=== PATIENT | male | born 1965 | race African-American/Black ===

== ENCOUNTER 2016-09-04 06:29 | Emergency (ER) | payer MEDICAID ==
[~2016-09-04] VITALS: Ht 172.7 cm; Wt 105.0 kg
[~2016-09-04 06:29] MED LIST: METFORMIN
[2016-09-04] MEDS ORDERED: LIDOCAINE HCL 1% 20ML VIAL (Pyxis) INJ MC ONE (08:00)
[2016-09-04] MEDS ORDERED: OXYCODONE HCL/ACETAMINOPHEN 5/325MG TABLET PO ONE (08:00)
[2016-09-04 08:28] VITALS: BP 136/60
== END 2016-09-04 09:22 | disposition home or self-care (01) ==
LOC: ER 07:39
DX: L02.31 Cutaneous abscess of buttock (principal)
CPT/HCPCS: 10060; 99283; J3490

== ENCOUNTER 2017-03-06 04:01 | Observation (INO) | payer MEDICAID ==
[~2017-03-06] VITALS: Ht 167.6 cm; Wt 99.8 kg
[2017-03-06] MEDS ORDERED: SODIUM CHLORIDE 0.9% 1,000 ML IV ONE (06:25)
[2017-03-06] MEDS ORDERED: KETOROLAC 30MG/ML VIAL IV STA (06:25)
[2017-03-06] MEDS ORDERED: ONDANSETRON HCL 4MG/2ML VIAL IV STA (06:25)
[2017-03-06] MEDS ORDERED: LEVOFLOXACIN 750MG PREMIX 150 ML IV ONE (06:30)
[2017-03-06] MEDS ORDERED: VANCOMYCIN 1 G PREMIX 200 ML IV ONE (06:30)
[2017-03-06 07:11] LABS: BASOPHILS % 0.5 % (0.0-2.0); EOSINOPHILS % 1.4 % (0.0-5.0); HEMATOCRIT. 38.3 % (42.0-52.0); HEMOGLOBIN. 12.7 g/dL (14.0-18.0); LYMPHOCYTES % 24.2 % (20.0-50.0); MEAN CORPUSCULAR HEMOGLOBIN 27.5 pg (28.0-32.0); MEAN CORPUSCULAR VOLUME 82.8 fL (80.0-94.0); MEAN PLATELET VOLUME 9.9 fl (7.4-10.4); MONOCYTES % 4.6 % (2.0-8.0); NEUTROPHILS % 69.3 % (40.0-76.0); PLATELET 212 x1000/uL (130-400); RED BLOOD CELL COUNT 4.63 mill/uL (4.7-6.1); RED CELL DISTRIBUTION WIDTH 14.1 % (11.6-14.6)
[2017-03-06 07:16] LABS: PROTHROMBIN TIME 10.4 sec (9.4-11.6)
[2017-03-06 07:24] LABS: CARBON DIOXIDE 26 mEq/L (21-32); CHLORIDE 105 mEq/L (98-107)
[2017-03-06] MEDS ORDERED: DEXT 5%/0.45% NACL KCL 20MEQ/L 1,000 ML IV SCH (09:12)
[2017-03-06] MEDS ORDERED: ONDANSETRON HCL 4MG/2ML VIAL IV PRN ×2 (09:15→09:30)
[2017-03-06] MEDS ORDERED: MORPHINE SULFATE 2 MG/ML CPJ (NOT FOR IM USE) IV PRN ×3 (09:15→15:00)
[2017-03-06] MEDS ORDERED: HYDROCODONE/ACETAMINOPHEN 5/325MG TABLET PO PRN ×4 (09:15→09:30)
[2017-03-06] MEDS ORDERED: MORPHINE SULFATE 4 MG/ML CPJ (NOT FOR IM USE) IV PRN ×2 (09:15→09:30)
[2017-03-06] MEDS ORDERED: SUCCINYLCHOLINE CHLORIDE 200MG/10ML VIAL IV ONE (09:43)
[2017-03-06] MEDS ORDERED: LIDOCAINE HCL 1% 20ML VIAL (Pyxis) INJ ONE (09:43)
[2017-03-06] MEDS ORDERED: PHENYLEPHRINE HCL 10 MG/ML 1ML (IV VIAL) IV ONE (09:43)
[2017-03-06] MEDS ORDERED: PROPOFOL 200MG/20ML VIAL IV ONE ×2 (09:43→09:59)
[2017-03-06] MEDS ORDERED: HYDRALAZINE 20MG/ML VIAL ONE (10:03)
[2017-03-06] MEDS ORDERED: FENTANYL CITRATE/PF 50MCG/ML 2ML VIAL ONE (10:05)
[2017-03-06] MEDS ORDERED: IPRATROPIUM/ALBUTEROL 0.5-3(2.5)MG/3ML NEB ONE (10:35)
[2017-03-06] MEDS ORDERED: IPRATROPIUM/ALBUTEROL 0.5-3(2.5)MG/3ML NEB HHN ONE (10:45)
[2017-03-06] MEDS ORDERED: ALBUTEROL (0.083%) 2.5MG/3ML NEB HHN ONE (10:45)
[2017-03-06] MEDS ORDERED: HYDROMORPHONE HCL/PF 2MG/ML CPJ IV PRN (10:45)
[2017-03-06 12:45] VITALS: BP 142/75
[2017-03-06 13:10] VITALS: BP 142/75
[2017-03-06 16:00] VITALS: BP 146/79
[2017-03-06] MEDS ORDERED: DEXTROSE 50% WATER 50ML SYRINGE IV PRN (16:15)
[2017-03-06] MEDS: DEXT 5%/0.45% NACL KCL 20MEQ/L 1,000 ML IV SCH (16:44)
[2017-03-06] MEDS: BLOOD SUGAR DIAGNOSTIC STRIP TEST SCH ×2 (17:45→20:15)
[2017-03-06] MEDS: INSULIN LISPRO 100 UNITS/ML SUBCUT SCH ×2 (17:50→21:02)
[2017-03-06 20:00] VITALS: BP 145/87
[2017-03-07] VITALS: BP 167/90
[2017-03-07] MEDS: DEXT 5%/0.45% NACL KCL 20MEQ/L 1,000 ML IV SCH (01:06)
[2017-03-07 04:00] VITALS: BP 154/81
[2017-03-07] MEDS: BLOOD SUGAR DIAGNOSTIC STRIP TEST SCH (06:36)
== END 2017-03-07 07:15 | disposition left against medical advice (07) ==
LOC: ER 04:01 → EDBEDREQ 08:32 → ER 09:15 → ENRESERV 10:44 → 6EST 12:21 → INTOOBSV 12:21
PROVIDERS: ADMIT Internal Medicine; ATTEND Internal Medicine
DX: L02.31 Cutaneous abscess of buttock (principal); E11.9 Type 2 diabetes mellitus without complications; F17.200 Nicotine dependence, unspecified, uncomplicated; I10 Essential (primary) hypertension; Z79.84 Long term (current) use of oral hypoglycemic drugs
CPT/HCPCS: 10061; 36415; 80053; 82962; 83605; 85025; 85610; 87040; 87070; 87075; 87205; 93005; 94640; 96361; 96365; 96366; 96368; 96372; 96375; 99285; G0378; J0330; J0360; J1815; J1885; J1956; J2270; J2370; J2405; J3010; J3370; J3490; J7030; J2704; J7620

== ENCOUNTER 2017-03-29 04:39 | Emergency (ER) | payer MEDICAID ==
[~2017-03-29] VITALS: Ht 167.6 cm; Wt 101.4 kg
[2017-03-29 07:15] VITALS: BP 154/105
[2017-03-29] MEDS ORDERED: ACETAMINOPHEN 325MG TABLET PO ONE (08:00)
[2017-03-29] MEDS ORDERED: LIDOCAINE HCL 1% 20ML VIAL (Pyxis) INJ MC ONE (08:00)
== END 2017-03-29 09:44 | disposition home or self-care (01) ==
LOC: ER 04:39
DX: K65.1 Peritoneal abscess (principal); E11.9 Type 2 diabetes mellitus without complications; E78.00 Pure hypercholesterolemia, unspecified; F17.210 Nicotine dependence, cigarettes, uncomplicated; F12.10 Cannabis abuse, uncomplicated
CPT/HCPCS: 10060; 99283; J3490; X7700; Z7610

== ENCOUNTER 2017-04-26 03:37 | Emergency (ER) | payer MEDICAID ==
[~2017-04-26] VITALS: Ht 167.6 cm; Wt 100.0 kg
[2017-04-26] MEDS ORDERED: POVIDONE-IODINE 10% TOPICAL SOLN 240ML TOP ONE (06:30)
[2017-04-26] MEDS ORDERED: LIDOCAINE HCL 1% 20ML VIAL (Pyxis) INJ INFIL ONE (06:30)
[2017-04-26] MEDS ORDERED: HYDROCODONE/ACETAMINOPHEN 5/325MG TABLET PO ONE (06:30)
[2017-04-26 07:25] LABS: BASOPHILS % 1.1 % (0.0-2.0); EOSINOPHILS % 1.6 % (0.0-5.0); HEMATOCRIT. 39.4 % (42.0-52.0); HEMOGLOBIN. 12.8 g/dL (14.0-18.0); LYMPHOCYTES % 28.9 % (20.0-50.0); MEAN CORPUSCULAR VOLUME 83.2 fL (80.0-94.0); MEAN PLATELET VOLUME 9.4 fl (7.4-10.4); MONOCYTES % 6.5 % (2.0-8.0); NEUTROPHILS % 61.9 % (40.0-76.0); PLATELET 264 x1000/uL (130-400); RED BLOOD CELL COUNT 4.73 mill/uL (4.7-6.1); RED CELL DISTRIBUTION WIDTH 14.8 % (11.6-14.6)
[2017-04-26 07:43] LABS: CARBON DIOXIDE 27 mEq/L (21-32); CHLORIDE 104 mEq/L (98-107)
[2017-04-26 08:50] VITALS: BP 164/84
== END 2017-04-26 09:07 | disposition home or self-care (01) ==
LOC: ER 03:37
DX: L02.412 Cutaneous abscess of left axilla (principal); E11.9 Type 2 diabetes mellitus without complications; Z79.84 Long term (current) use of oral hypoglycemic drugs
CPT/HCPCS: 10060; 36415; 76881; 80048; 85025; 87070; 87077; 87186; 87205; 99285; A4246; J3490; X7700; Z7610

== ENCOUNTER 2017-08-03 02:50 | Emergency (ER) | payer MEDICAID ==
[~2017-08-03] VITALS: Ht 175.3 cm; Wt 100.0 kg
[2017-08-03 03:11] VITALS: BP 150/102
[2017-08-03 05:46] LABS: CLARITY URINE CLEAR (CLEAR); COLOR URINE YELLOW (YELLOW); KETONES URINE TRACE (NEGATIVE); LEUKOCYTE ESTERASE URINE NEGATIVE (NEGATIVE); NITRITE URINE NEGATIVE (NEGATIVE); OCCULT BLOOD URINE TRACE (NEGATIVE); PH URINE 5.5 (4.5-8.0); PROTEIN URINE 1+ (NEGATIVE); SPECIFIC GRAVITY URINE 1.028 (1.005-1.030)
[2017-08-03 05:57] LABS: *AMPHETAMINES SCREEN URINE NEGATIVE (NEGATIVE); *BARBITURATES SCREEN URINE NEGATIVE (NEGATIVE); *BENZODIAZEPINES SCREEN URINE NEGATIVE (NEGATIVE)
[2017-08-03 05:58] LABS: *COCAINE SCREEN URINE NEGATIVE (NEGATIVE); CANNABINOID URINE SCREEN PRESUMTIVE POSITIVE (NEGATIVE); METHADONE URINE SCREEN NEGATIVE (NEGATIVE); OPIATES URINE SCREEN NEGATIVE (NEGATIVE); PHENCYCLIDINE URINE SCREEN NEGATIVE (NEGATIVE)
== END 2017-08-03 06:07 | disposition left against medical advice (07) ==
LOC: ER 02:50
DX: E11.65 Type 2 diabetes mellitus with hyperglycemia (principal); F17.200 Nicotine dependence, unspecified, uncomplicated; F12.10 Cannabis abuse, uncomplicated; Z79.84 Long term (current) use of oral hypoglycemic drugs
CPT/HCPCS: 80305; 81003; 82962; 99284

== ENCOUNTER 2017-10-01 09:08 | Emergency (ER) | payer MEDICAID ==
[~2017-10-01] VITALS: Ht 167.6 cm; Wt 100.0 kg
[2017-10-01] MEDS ORDERED: DOCUSATE SODIUM SUGAR FREE 100MG/10ML UDC PO ONE (09:30)
[2017-10-01 11:33] VITALS: BP 129/87
== END 2017-10-01 11:34 | disposition home or self-care (01) ==
LOC: ER 09:26
DX: H61.23 Impacted cerumen, bilateral (principal); E11.9 Type 2 diabetes mellitus without complications; F17.200 Nicotine dependence, unspecified, uncomplicated; F12.10 Cannabis abuse, uncomplicated; Z79.84 Long term (current) use of oral hypoglycemic drugs
CPT/HCPCS: 99283; Z7610

== ENCOUNTER 2018-01-12 04:50 | Emergency (ER) | payer MEDICAID ==
[~2018-01-12] VITALS: Ht 167.6 cm; Wt 100.1 kg
[2018-01-12] MEDS ORDERED: IBUPROFEN 600MG TABLET PO STA (06:40)
[2018-01-12] MEDS ORDERED: BACITRACIN ZINC OINT UDPKT TOP ONE (06:45)
[2018-01-12] MEDS ORDERED: LIDOCAINE HCL/PF 1% 10 MG/ML 5ML VIAL IJ ONE (06:45)
[2018-01-12] MEDS ORDERED: TETANUS, DIPHTHERIA, PERTUSSIS VAC/PF 0.5ML (>7YR OLD) IM ONE (06:45)
[2018-01-12 08:51] VITALS: BP 145/87
== END 2018-01-12 08:53 | disposition home or self-care (01) ==
LOC: ER 04:50
DX: L02.211 Cutaneous abscess of abdominal wall (principal); E11.9 Type 2 diabetes mellitus without complications; R03.0 Elevated blood-pressure reading, without diagnosis of hypertension; F17.210 Nicotine dependence, cigarettes, uncomplicated; F12.90 Cannabis use, unspecified, uncomplicated; Z79.84 Long term (current) use of oral hypoglycemic drugs; Z23 Encounter for immunization
CPT/HCPCS: 82962; 90471; 90715; 99283; J3490

== ENCOUNTER 2018-11-26 03:03 | Emergency (ER) | payer MEDICAID ==
[~2018-11-26] VITALS: Ht 167.6 cm; Wt 100.0 kg
[2018-11-26] MEDS ORDERED: LIDOCAINE HCL/PF 1% 10 MG/ML 5ML VIAL IJ ONE (04:30)
[2018-11-26 05:27] VITALS: BP 144/77
== END 2018-11-26 05:29 | disposition home or self-care (01) ==
LOC: ER 03:03
DX: L02.31 Cutaneous abscess of buttock (principal); F17.200 Nicotine dependence, unspecified, uncomplicated; E11.9 Type 2 diabetes mellitus without complications; Z96.649 Presence of unspecified artificial hip joint
CPT/HCPCS: 10060; 99283; J3490; Z7610

== ENCOUNTER 2019-04-29 01:56 | Emergency (ER) | payer MEDICAID ==
[~2019-04-29] VITALS: Ht 167.6 cm; Wt 100.0 kg
[2019-04-29 02:11] VITALS: BP 143/95
== END 2019-04-29 05:24 | disposition left against medical advice (07) ==
LOC: ER 01:56
DX: L02.31 Cutaneous abscess of buttock (principal); Z53.21 Procedure and treatment not carried out due to patient leaving prior to being seen by health care provider
CPT/HCPCS: 82962

== ENCOUNTER 2019-07-03 08:44 | Emergency (ER) | payer MEDICAID ==
[~2019-07-03] VITALS: Ht 167.6 cm; Wt 100.0 kg
[2019-07-03] MEDS ORDERED: ACETAMINOPHEN 325MG TABLET PO ONE (09:45)
[2019-07-03 10:47] VITALS: BP 147/100
== END 2019-07-03 10:50 | disposition home or self-care (01) ==
LOC: ER 08:44
DX: H66.91 Otitis media, unspecified, right ear (principal); E11.9 Type 2 diabetes mellitus without complications; F12.10 Cannabis abuse, uncomplicated
CPT/HCPCS: 99283

== ENCOUNTER 2019-08-09 04:45 | Emergency (ER) | payer MEDICAID ==
[~2019-08-09] VITALS: Ht 167.6 cm; Wt 105.0 kg
[2019-08-09 04:57] VITALS: BP 158/110
[2019-08-09] MEDS ORDERED: LIDOCAINE HCL/PF 1% 10 MG/ML 5ML VIAL IJ ONE (05:30)
[2019-08-09] MEDS ORDERED: BACITRACIN ZINC OINT UDPKT TOP ONE (05:30)
== END 2019-08-09 06:03 | disposition home or self-care (01) ==
LOC: ER 04:45
DX: L02.211 Cutaneous abscess of abdominal wall (principal); E11.9 Type 2 diabetes mellitus without complications; E78.00 Pure hypercholesterolemia, unspecified; I10 Essential (primary) hypertension; F12.10 Cannabis abuse, uncomplicated
CPT/HCPCS: 10060; 99282; J3490

== ENCOUNTER 2019-09-27 04:55 | Inpatient (IN) | payer MEDICAID ==
[~2019-09-27] VITALS: Ht 167.6 cm; Wt 99.8 kg
[2019-09-27] MEDS ORDERED: IBUPROFEN 400MG TABLET PO SCH (05:15)
[2019-09-27] MEDS ORDERED: SODIUM CHLORIDE 0.9% 1,000 ML IV ONE (06:16)
[2019-09-27] MEDS ORDERED: MORPHINE SULFATE 4 MG/ML CPJ (NOT FOR IM USE) IV ONE (06:30)
[2019-09-27] MEDS ORDERED: VANCOMYCIN 1 G PREMIX 200 ML IV ONE (06:30)
[2019-09-27] MEDS ORDERED: PIPERACILLIN/TAZ 3.375G PREMIX 50 ML IV ONE (06:30)
[2019-09-27] MEDS ORDERED: ONDANSETRON HCL 4MG/2ML INJ IV ONE (06:30)
[2019-09-27 07:15] LABS: BASOPHILS % 1.1 % (0.0-2.0); EOSINOPHILS % 0.5 % (0.0-5.0); HEMOGLOBIN. 13.6 g/dL (14.0-18.0); LYMPHOCYTES % 18.9 % (20.0-50.0); MEAN CORPUSCULAR HEMOGLOBIN 27.1 pg (28.0-32.0); MEAN CORPUSCULAR VOLUME 81.9 fL (80.0-94.0); MEAN PLATELET VOLUME 10.3 fl (7.4-10.4); MONOCYTES % 5.4 % (2.0-8.0); NEUTROPHILS % 74.1 % (40.0-76.0); PLATELET 282 x1000/uL (130-400); RED BLOOD CELL COUNT 5.01 mill/uL (4.7-6.1); RED CELL DISTRIBUTION WIDTH 14.2 % (11.6-14.6)
[2019-09-27 07:18] LABS: CLARITY URINE CLEAR (CLEAR); COLOR URINE YELLOW (YELLOW); KETONES URINE TRACE (NEGATIVE); LEUKOCYTE ESTERASE URINE NEGATIVE (NEGATIVE); NITRITE URINE NEGATIVE (NEGATIVE); OCCULT BLOOD URINE TRACE (NEGATIVE); PROTEIN URINE 2+ (NEGATIVE); SPECIFIC GRAVITY URINE 1.038 (1.005-1.030); UROBILINOGEN URINE 0.2 E.U./dL (0.2-1.0)
[2019-09-27 07:22] LABS: CHLORIDE 101 mEq/L (98-107); INR 0.9; PROTHROMBIN TIME 9.9 sec (9.6-11.0)
[2019-09-27 07:41] LABS: *AMPHETAMINES SCREEN URINE NEGATIVE (NEGATIVE); *BARBITURATES SCREEN URINE NEGATIVE (NEGATIVE); *BENZODIAZEPINES SCREEN URINE NEGATIVE (NEGATIVE); *COCAINE SCREEN URINE NEGATIVE (NEGATIVE)
[2019-09-27 07:42] LABS: CANNABINOID URINE SCREEN PRESUMTIVE POSITIVE (NEGATIVE); METHADONE URINE SCREEN NEGATIVE (NEGATIVE); OPIATES URINE SCREEN PRESUMTIVE POSITIVE (NEGATIVE); PHENCYCLIDINE URINE SCREEN NEGATIVE (NEGATIVE)
[2019-09-27] MEDS ORDERED: INSULIN REGULAR (HUMULIN R) 300UNITS/3ML IV ONE (07:45)
[2019-09-27] MEDS ORDERED: IOHEXOL-300 100 ML BOTTLE ONE (08:41)
[2019-09-27] MEDS ORDERED: ACETAMINOPHEN 325MG TABLET PO PRN (09:15)
[2019-09-27] MEDS ORDERED: CLONIDINE 0.1MG TABLET PO PRN (09:15)
[2019-09-27] MEDS ORDERED: DIPHENHYDRAMINE 50MG/ML VIAL IV PRN (09:15)
[2019-09-27] MEDS ORDERED: ONDANSETRON HCL 4MG/2ML INJ IV PRN (09:15)
[2019-09-27] MEDS ORDERED: IPRATROPIUM/ALBUTEROL 0.5-3(2.5)MG/3ML NEB HHN PRN (09:15)
[2019-09-27] MEDS ORDERED: PIPERACILLIN/TAZ 3.375G PREMIX 50 ML IV SCH (09:15)
[2019-09-27 09:51] LABS: PHOSPHORUS 3.4 mg/dL (2.5-4.9)
[2019-09-27 10:00] VITALS: BP 151/98
[2019-09-27] MEDS ORDERED: SODIUM CHLORIDE 0.9% 1,000 ML IV SCH (11:00)
[2019-09-27 12:00] VITALS: BP 157/97
[2019-09-27] MEDS ORDERED: VANCOMYCIN 1500MG in DEXTROSE 5% WATER 250ML IV SCH (12:00)
[2019-09-27] MEDS ORDERED: PIPERACILLIN/TAZOBACTAM 3.375 G in DEXT 5% WATER 100 ML IV SCH (12:00)
[2019-09-27] MEDS ORDERED: MORPHINE SULFATE 2 MG/ML CPJ (NOT FOR IM USE) IV PRN (14:00)
[2019-09-27 16:22] VITALS: BP 157/97
== END 2019-09-27 16:41 | disposition home or self-care (01) | DRG 383 ==
LOC: ER 05:28 → 6EST 08:26 → EDBEDREQ 08:35 → ENRESERV 08:47
PROVIDERS: ADMIT Internal Medicine; ATTEND Internal Medicine
DX: L03.317 Cellulitis of buttock (principal); E11.65 Type 2 diabetes mellitus with hyperglycemia; E78.00 Pure hypercholesterolemia, unspecified; F17.200 Nicotine dependence, unspecified, uncomplicated; I10 Essential (primary) hypertension; Z79.899 Other long term (current) drug therapy
CPT/HCPCS: 36415; 71045; 74177; 80053; 80305; 81003; 83605; 83735; 84100; 84145; 85025; 93005; 93970; 99285; J1815; J2270; J2405; J2543; J3370; J7030; J7060; Q9967

== ENCOUNTER 2019-09-28 10:52 | Emergency (ER) | payer MEDICAID ==
[~2019-09-28] VITALS: Ht 167.6 cm; Wt 100.0 kg
[2019-09-28 11:18] VITALS: BP 135/96
[2019-09-28] MEDS ORDERED: LIDOCAINE HCL/PF 1% 10 MG/ML 5ML VIAL IJ ONE (12:00)
[2019-09-28] MEDS ORDERED: TETANUS, DIPHTHERIA, PERTUSSIS VAC/PF 0.5ML (>7YR OLD) IM ONE (12:00)
[2019-09-28] MEDS ORDERED: IBUPROFEN 600MG TABLET PO ONE (12:00)
[2019-09-28] MEDS ORDERED: BACITRACIN ZINC OINT UDPKT TOP ONE (12:00)
== END 2019-09-28 13:18 | disposition left against medical advice (07) ==
LOC: ER 10:52
DX: L02.31 Cutaneous abscess of buttock (principal); E78.00 Pure hypercholesterolemia, unspecified; E11.9 Type 2 diabetes mellitus without complications; I10 Essential (primary) hypertension
CPT/HCPCS: 90471; 90715; 99283; J3490

== ENCOUNTER 2020-01-02 04:28 | Emergency (ER) | payer MEDICAID ==
[~2020-01-02] VITALS: Ht 167.6 cm; Wt 100.0 kg
[2020-01-02] MEDS ORDERED: MORPHINE SULFATE 4 MG/ML CPJ (NOT FOR IM USE) IV STA (05:00)
[2020-01-02] MEDS ORDERED: PIPERACILLIN/TAZ 3.375G PREMIX 50 ML IV ONE (05:00)
[2020-01-02] MEDS ORDERED: ONDANSETRON HCL 4MG/2ML INJ IV STA (05:00)
[2020-01-02] MEDS ORDERED: SODIUM CHLORIDE 0.9% 1,000 ML IV ONE (05:00)
[2020-01-02] MEDS ORDERED: VANCOMYCIN 1 G PREMIX 200 ML IV ONE (05:00)
[2020-01-02 05:47] LABS: BASOPHILS % 0.6 % (0.0-2.0); EOSINOPHILS % 0.9 % (0.0-5.0); HEMATOCRIT. 42.7 % (42.0-52.0); HEMOGLOBIN. 13.7 g/dL (14.0-18.0); MEAN CORPUSCULAR HEMOGLOBIN 26.8 pg (28.0-32.0); MEAN CORPUSCULAR VOLUME 83.4 fL (80.0-94.0); MEAN PLATELET VOLUME 10.2 fl (7.4-10.4); MONOCYTES % 4.8 % (2.0-8.0); NEUTROPHILS % 71.7 % (40.0-76.0); PLATELET 257 x1000/uL (130-400); RED BLOOD CELL COUNT 5.12 mill/uL (4.7-6.1); RED CELL DISTRIBUTION WIDTH 14.6 % (11.6-14.6)
[2020-01-02 05:54] LABS: CHLORIDE 102 mEq/L (98-107)
[2020-01-02 06:09] LABS: CLARITY URINE CLEAR (CLEAR); COLOR URINE YELLOW (YELLOW); KETONES URINE 1+ (NEGATIVE); LEUKOCYTE ESTERASE URINE NEGATIVE (NEGATIVE); NITRITE URINE NEGATIVE (NEGATIVE); OCCULT BLOOD URINE TRACE (NEGATIVE); PROTEIN URINE 3+ (NEGATIVE); SPECIFIC GRAVITY URINE 1.038 (1.005-1.030)
[2020-01-02] MEDS ORDERED: IOHEXOL-300 100 ML BOTTLE ONE (07:09)
[2020-01-02 07:49] VITALS: BP 151/78
== END 2020-01-02 08:57 | disposition left against medical advice (07) ==
LOC: ER 04:28 → CANBEDREQ 18:18
DX: L02.211 Cutaneous abscess of abdominal wall (principal); E11.9 Type 2 diabetes mellitus without complications; E78.00 Pure hypercholesterolemia, unspecified
CPT/HCPCS: 36415; 71045; 74177; 80053; 81003; 83605; 84145; 85025; 87040; 93005; 96365; 96367; 96375; 99285; J2270; J2405; J2543; J3370; J7030; Q9967

== ENCOUNTER 2020-03-26 04:27 | Emergency (ER) | payer MEDICAID ==
[~2020-03-26] VITALS: Ht 167.6 cm; Wt 100.0 kg
[2020-03-26] MEDS ORDERED: OXYCODONE HCL/ACETAMINOPHEN 5/325MG TABLET PO ONE (06:45)
[2020-03-26] MEDS ORDERED: LIDOCAINE HCL/PF 1% 10 MG/ML 5ML VIAL IJ ONE (07:00)
[2020-03-26 07:12] VITALS: BP 154/74
== END 2020-03-26 07:12 | disposition home or self-care (01) ==
LOC: ER 04:27
DX: L02.31 Cutaneous abscess of buttock (principal); E11.9 Type 2 diabetes mellitus without complications
CPT/HCPCS: 10060; 99284; J3490

== ENCOUNTER 2021-02-04 11:30 | Emergency (ER) | payer MEDICAID ==
[~2021-02-04] VITALS: Ht 167.6 cm; Wt 109.0 kg
[2021-02-04 11:56] VITALS: BP 163/100
[2021-02-04] MEDS ORDERED: KETOROLAC 60MG/2ML VIAL IM STA (12:05)
[2021-02-04] MEDS ORDERED: LIDOCAINE HCL/EPINEPHRINE 1%-EPI 1:100,000 20 ML VIAL INFIL ONE (12:15)
[2021-02-04] MEDS ORDERED: BACITRACIN ZINC OINT UDPKT TOP ONE (12:15)
[2021-02-04] MEDS ORDERED: SULF1TAB48 PO (14:56)
[2021-02-04] MEDS ORDERED: CEPH500T PO (14:56)
[2021-02-04] MEDS ORDERED: IBUP-2029 PO (14:56)
== END 2021-02-04 15:05 | disposition home or self-care (01) ==
LOC: ER 11:30
DX: L02.411 Cutaneous abscess of right axilla (principal); E11.9 Type 2 diabetes mellitus without complications; F17.210 Nicotine dependence, cigarettes, uncomplicated
CPT/HCPCS: 10060; 96372; 99283; J1885; J3490; Z7610

== ENCOUNTER 2021-05-11 10:31 | Emergency (ER) | payer MEDICAID, OTHER ==
[~2021-05-11] VITALS: Ht 167.6 cm; Wt 93.0 kg
[~2021-05-11 10:31] MED LIST changes: +CEPH500T PO; +IBUP-2029 PO; +SULF1TAB48 PO
[2021-05-11] MEDS ORDERED: ACETAMINOPHEN WITH CODEINE 300/30MG TABLET PO ONE (10:45)
[2021-05-11] MEDS ORDERED: CEPH500C2 MT (10:49)
[2021-05-11] MEDS ORDERED: T3 PO (10:49)
[2021-05-11 11:17] VITALS: BP 156/90
== END 2021-05-11 11:18 | disposition home or self-care (01) ==
LOC: ER 10:31
DX: L02.31 Cutaneous abscess of buttock (principal); E11.9 Type 2 diabetes mellitus without complications; I10 Essential (primary) hypertension; Z79.84 Long term (current) use of oral hypoglycemic drugs
CPT/HCPCS: 99283; Z7610

== ENCOUNTER 2021-05-14 05:01 | Emergency (ER) | payer OTHER ==
[~2021-05-14] VITALS: Ht 167.6 cm; Wt 93.0 kg
[~2021-05-14 05:01] MED LIST changes: +CEPH500C2 MT; +T3 PO
[2021-05-14] MEDS ORDERED: BACITRACIN ZINC OINT UDPKT TOP ONE (06:00)
[2021-05-14] MEDS ORDERED: LIDOCAINE HCL/EPINEPHRINE 1%-EPI 1:100,000 20 ML VIAL INFIL ONE (06:00)
[2021-05-14] MEDS ORDERED: HYDR-4001 MT (06:40)
[2021-05-14 06:45] VITALS: BP 140/71
== END 2021-05-14 07:11 | disposition home or self-care (01) ==
LOC: ER 05:01
DX: L02.31 Cutaneous abscess of buttock (principal); E11.9 Type 2 diabetes mellitus without complications; Z79.84 Long term (current) use of oral hypoglycemic drugs
CPT/HCPCS: 10060; 87070; 87077; 87186; 87205; 99284; J3490; Z7610

== ENCOUNTER 2021-08-04 11:43 | Emergency (ER) | payer MEDICAID, OTHER ==
[~2021-08-04] VITALS: Ht 167.6 cm; Wt 90.0 kg
[~2021-08-04 11:43] MED LIST changes: +HYDR-4001 MT
[2021-08-04 11:51] VITALS: BP 168/104
[2021-08-04] MEDS ORDERED: LIDOCAINE HCL/EPINEPHRINE 1%-EPI 1:100,000 20 ML VIAL INFIL ONE (12:00)
[2021-08-04] MEDS ORDERED: ACETAMINOPHEN 325MG TABLET PO ONE (12:00)
[2021-08-04] MEDS ORDERED: SULF1TAB48 MT (18:37)
[2021-08-04] MEDS ORDERED: TOPUD MT (18:37)
== END 2021-08-04 19:00 | disposition home or self-care (01) ==
LOC: ER 11:43
DX: L02.31 Cutaneous abscess of buttock (principal); F17.200 Nicotine dependence, unspecified, uncomplicated; E11.9 Type 2 diabetes mellitus without complications; Z79.899 Other long term (current) drug therapy
CPT/HCPCS: 10060; 99283; Z7610

== ENCOUNTER 2021-08-17 08:24 | Emergency (ER) | payer OTHER ==
[~2021-08-17] VITALS: Ht 175.3 cm; Wt 92.0 kg
[~2021-08-17 08:24] MED LIST changes: +SULF1TAB48 MT; +TOPUD MT
[2021-08-17 08:34] VITALS: BP 154/92
[2021-08-17] MEDS ORDERED: LIDOCAINE HCL/PF 1% 10 MG/ML 5ML VIAL INFIL ONE (09:15)
[2021-08-17] MEDS ORDERED: LIDOCAINE HCL 1% 10 MG/ML 10ML VIAL IJ NR (09:45)
== END 2021-08-17 10:53 | disposition home or self-care (01) ==
LOC: ER 08:24
DX: L02.411 Cutaneous abscess of right axilla (principal); E11.9 Type 2 diabetes mellitus without complications; Z79.84 Long term (current) use of oral hypoglycemic drugs
CPT/HCPCS: 10060; 82962; 99284; J3490; Z7610

== ENCOUNTER 2021-08-27 08:43 | Emergency (ER) | payer OTHER ==
[~2021-08-27] VITALS: Ht 175.3 cm; Wt 92.0 kg
[2021-08-27] MEDS ORDERED: SODIUM CHLORIDE 0.9% 1000ML BAG (SEPSIS BOLUS) IV ONE (10:00)
[2021-08-27] MEDS ORDERED: PIPERACILLIN/TAZ 3.375G PREMIX 50 ML IV ONE (10:00)
[2021-08-27] MEDS ORDERED: VANCOMYCIN 1G PREMIX 200 ML IV ONE (10:00)
[2021-08-27] MEDS ORDERED: ONDANSETRON HCL 4MG/2ML INJ IV STA (10:43)
[2021-08-27] MEDS ORDERED: MORPHINE SULFATE 4 MG/ML CPJ (NOT FOR IM USE) IV STA (10:43)
[2021-08-27 10:53] LABS: BASOPHILS % 0.5 % (0.0-2.0); EOSINOPHILS % 1.5 % (0.0-5.0); HEMATOCRIT. 38.9 % (42.0-52.0); HEMOGLOBIN. 12.7 g/dL (14.0-18.0); LYMPHOCYTES % 20.8 % (20.0-50.0); MEAN CORPUSCULAR HEMOGLOBIN 26.9 pg (28.0-32.0); MEAN CORPUSCULAR VOLUME 82.3 fL (80.0-94.0); MEAN PLATELET VOLUME 9.6 fl (7.4-10.4); MONOCYTES % 5.3 % (2.0-8.0); NEUTROPHILS % 71.9 % (40.0-76.0); PLATELET 282 x1000/uL (130-400); RED BLOOD CELL COUNT 4.73 mill/uL (4.7-6.1); RED CELL DISTRIBUTION WIDTH 14.7 % (11.6-14.6)
[2021-08-27 10:54] LABS: CHLORIDE 108 mEq/L (98-107)
[2021-08-27 11:00] LABS: PARTIAL THROMBOPLASTIN TIME 26.8 sec (23.4-31.0); PROTHROMBIN TIME 10.3 sec (9.6-11.0)
[2021-08-27] MEDS ORDERED: VANCOMYCIN 1GM PMX (XELLIA) 200 ML IV NR (11:30)
[2021-08-27 12:57] VITALS: BP 141/94
== END 2021-08-27 12:58 | disposition left against medical advice (07) ==
LOC: ER 08:52 → CANBEDREQ 13:19
DX: K61.1 Rectal abscess (principal); L02.415 Cutaneous abscess of right lower limb; E11.65 Type 2 diabetes mellitus with hyperglycemia; R79.9 Abnormal finding of blood chemistry, unspecified; I49.9 Cardiac arrhythmia, unspecified; Z20.822 Contact with and (suspected) exposure to COVID-19
CPT/HCPCS: 36415; 80053; 83605; 84145; 85025; 85610; 85651; 85730; 86140; 87040; 87426; 93005; 96365; 96367; 96375; 99291; J2270; J2405; J2543; J3370; J7030

== ENCOUNTER 2022-04-25 06:00 | Emergency (ER) | payer MEDICAID, OTHER ==
[~2022-04-25] VITALS: Ht 167.6 cm; Wt 92.0 kg
[2022-04-25] MEDS ORDERED: IBUPROFEN 400MG TABLET PO ONE (09:15)
[2022-04-25 09:37] VITALS: BP 169/105
[2022-04-25] MEDS ORDERED: OFLO5DRO4 RIGHT EAR (11:17)
== END 2022-04-25 11:53 | disposition home or self-care (01) ==
LOC: ER 06:00
DX: H92.01 Otalgia, right ear (principal); H61.21 Impacted cerumen, right ear; E11.9 Type 2 diabetes mellitus without complications
CPT/HCPCS: 69209; 99283

== ENCOUNTER 2022-07-19 21:49 | Emergency (ER) | payer OTHER ==
[~2022-07-19] VITALS: Ht 170.2 cm; Wt 68.0 kg
[~2022-07-19 21:49] MED LIST changes: +OFLO5DRO4 RIGHT EAR
[2022-07-19] MEDS ORDERED: MORPHINE SULFATE 4 MG/ML CPJ (NOT FOR IM USE) IV STA (23:33)
[2022-07-19] MEDS ORDERED: VANCOMYCIN 1G PREMIX 200 ML IV ONE (23:45)
[2022-07-20] MEDS ORDERED: KETOROLAC 30MG/ML VIAL IV ONE (00:30)
[2022-07-20] MEDS ORDERED: CEFTRIAXONE 2 G PREMIX 50 ML IV ONE (00:30)
[2022-07-20 00:42] LABS: BASOPHILS % 0.3 % (0.0-2.0); EOSINOPHILS % 0.7 % (0.0-5.0); HEMATOCRIT. 38.4 % (42.0-52.0); HEMOGLOBIN. 11.9 g/dL (14.0-18.0); LYMPHOCYTES % 7.6 % (20.0-50.0); MEAN CORPUSCULAR HEMOGLOBIN 25.2 pg (28.0-32.0); MEAN CORPUSCULAR VOLUME 81.5 fL (80.0-94.0); MEAN PLATELET VOLUME 9.8 fl (7.4-10.4); MONOCYTES % 5.6 % (2.0-8.0); NEUTROPHILS % 85.8 % (40.0-76.0); PLATELET 434 x1000/uL (130-400); RED BLOOD CELL COUNT 4.71 mill/uL (4.7-6.1); RED CELL DISTRIBUTION WIDTH 15.7 % (11.6-14.6)
[2022-07-20 01:23] LABS: CHLORIDE 101 mEq/L (98-107)
[2022-07-20] MEDS ORDERED: INSULIN REGULAR (HUMULIN R) 300UNITS/3ML VIAL SUBCUT ONE (02:15)
[2022-07-20] MEDS ORDERED: SODIUM CHLORIDE 0.9% 1,000 ML IV ONE (02:15)
[2022-07-20 03:20] VITALS: BP 152/68
== END 2022-07-20 03:32 | disposition short-term general hospital (02) ==
LOC: ER 21:49
DX: L02.31 Cutaneous abscess of buttock (principal); D64.9 Anemia, unspecified; Z79.899 Other long term (current) drug therapy
CPT/HCPCS: 36415; 80053; 82962; 85025; 99284; J0696; J1815; J1885; J2270; J3370; J7030; Z7610

== ENCOUNTER 2022-07-25 01:28 | Emergency (ER) | payer OTHER ==
[~2022-07-25] VITALS: Ht 167.6 cm; Wt 84.4 kg
[2022-07-25] MEDS ORDERED: MORPHINE SULFATE 4 MG/ML CPJ (NOT FOR IM USE) IV ONE (05:30)
[2022-07-25] MEDS ORDERED: PIPERACILLIN/TAZ 3.375G PREMIX 50 ML IV NR (05:30)
[2022-07-25] MEDS ORDERED: PIPERACILLIN/TAZOBACTAM 3.375GM/50ML PREMIX IV ONE (05:30)
[2022-07-25 05:41] LABS: BASOPHILS % 0.5 % (0.0-2.0); HEMATOCRIT. 36.7 % (42.0-52.0); HEMOGLOBIN. 11.6 g/dL (14.0-18.0); LYMPHOCYTES % 22.2 % (20.0-50.0); MEAN CORPUSCULAR HEMOGLOBIN 25.5 pg (28.0-32.0); MEAN CORPUSCULAR VOLUME 81.1 fL (80.0-94.0); MEAN PLATELET VOLUME 9.7 fl (7.4-10.4); NEUTROPHILS % 68.3 % (40.0-76.0); PLATELET 334 x1000/uL (130-400); RED BLOOD CELL COUNT 4.52 mill/uL (4.7-6.1); RED CELL DISTRIBUTION WIDTH 15.3 % (11.6-14.6)
[2022-07-25 06:07] LABS: CHLORIDE 102 mEq/L (98-107)
[2022-07-25 06:18] LABS: INR 0.9; PROTHROMBIN TIME 10.2 sec (9.6-11.0)
[2022-07-25] MEDS ORDERED: IOHEXOL-300 100 ML BOTTLE ONE (09:11)
[2022-07-25 12:56] VITALS: BP 140/87
== END 2022-07-25 11:15 | disposition short-term general hospital (02) ==
LOC: ER 01:28
DX: L02.31 Cutaneous abscess of buttock (principal); E11.9 Type 2 diabetes mellitus without complications; I10 Essential (primary) hypertension; Z79.899 Other long term (current) drug therapy; Z20.822 Contact with and (suspected) exposure to COVID-19
CPT/HCPCS: 36415; 74177; 80053; 83605; 85025; 85610; 85651; 87040; 87426; 96365; 96375; 99285; C9803; J2270; J2543; Q9967; Z7610

== ENCOUNTER 2023-06-16 05:44 | Emergency (ER) | payer MEDICAID, OTHER ==
[~2023-06-16] VITALS: Ht 175.3 cm; Wt 85.0 kg
[2023-06-16 06:26] VITALS: O2SAT 100
[2023-06-16] MEDS ORDERED: LIDOCAINE HCL 1% 20ML VIAL (Pyxis) INJ INFIL ONE (08:45)
[2023-06-16] MEDS ORDERED: POVIDONE-IODINE 10% TOPICAL SOLN 240ML TOP ONE (08:45)
[2023-06-16 09:07] VITALS: BP 156/106; PULSE 92; RESP 14; TEMP 98.3
== END 2023-06-16 09:14 | disposition home or self-care (01) ==
LOC: ER 05:44
DX: L02.211 Cutaneous abscess of abdominal wall (principal)
CPT/HCPCS: 10060; 99282; J3490; Z7610 ×5

== ENCOUNTER 2024-01-04 05:21 | Emergency (ER) | payer OTHER ==
[~2024-01-04] VITALS: Ht 175.3 cm; Wt 76.1 kg
[2024-01-04 05:32] VITALS: TEMP 98.7
[2024-01-04 06:37] VITALS: BP 167/104; PULSE 94; RESP 18
[2024-01-04] MEDS: CEPHALEXIN 250MG CAPSULE PO ONE (06:37)
[2024-01-04] MEDS: SULFAMETHOXAZOLE/TRIMETHOPRIM 800/160MG TABLET PO ONE (06:37)
[2024-01-04] MEDS: HYDROCODONE/ACETAMINOPHEN 5/325MG TABLET PO ONE (06:37)
[2024-01-04] MEDS ORDERED: CEPH500T MT (07:10)
[2024-01-04] MEDS ORDERED: SULF1TAB48 MT (07:10)
[2024-01-04] MEDS: LIDOCAINE HCL/EPINEPHRINE 1%-EPI 1:100,000 20 ML VIAL INFIL ONE (07:12)
== END 2024-01-04 08:16 | disposition home or self-care (01) ==
LOC: ER 05:39
DX: L02.211 Cutaneous abscess of abdominal wall (principal); E11.9 Type 2 diabetes mellitus without complications; I10 Essential (primary) hypertension; Z98.890 Other specified postprocedural states; Z79.899 Other long term (current) drug therapy
CPT/HCPCS: 99284; 10060; J3490